=== PATIENT | male | born 1975 | race Caucasian/White ===

== ENCOUNTER 2020-05-02 11:39 | Emergency (ER) | payer OTHER ==
--- NOTE | 2020-05-02 12:00 | ED Physician Documentation ---
PD HPI ABD PAIN - Stated complaint Stated Complaint: ADB/SIDE PX - LOWER RT - Chief complaint Chief Complaint: Abd Pain - History obtained from History obtained from: Patient - History of Present Illness Timing - onset: How many months ago (1-2 months of intermittent RLQ pain last days at a time, and then more consistent the past couple weeks, hurting to some extent all the time. Local to RLQ area. He is concerned about appendix.) Timing - duration: Weeks Timing - details: Gradual onset, Still present, Waxing and waning Quality: Cramping, Aching, Pain Location: RLQ Radiation: No: Right flank Improved by: No: Eating, BM Worsened by: Moving, Position. No: Eating, Breathing Associated symptoms: Constipation (having BMs but they are firm and small typically.), Loss of appetite. No: Fever, Nausea, Vomiting, Diarrhea, Weight loss Similar symptoms before: Has not had sx before Review of Systems Constitutional: denies: Fever Nose: denies: Rhinorrhea / runny nose, Congestion Throat: denies: Sore throat Respiratory: denies: Cough GI: reports: Abdominal Pain, Constipation (firm with smaller amounts). denies: Abdominal Swelling, Nausea, Vomiting, Diarrhea, Bloody / black stool : denies: Dysuria, Frequency, Hematuria Skin: denies: Rash, Lesions Musculoskeletal: denies: Neck pain, Back pain PD PAST MEDICAL HISTORY - Past Medical History Past Medical History: No Cardiovascular: None Respiratory: None Endocrine/Autoimmune: None GI: None - Past Surgical History Past Surgical History: No - Present Medications Home Medications: Ambulatory Orders Medication Instructions Recorded Confirmed Docusate Sodium 100 mg PO DAILY #30 capsule 05/02/20 Naproxen 500 mg PO BID #20 tablet 05/02/20 - Allergies Allergies/Adverse Reactions: Allergies Allergy/AdvReac Type Severity Reaction Status Date / Time No Known Drug Allergies Allergy Verified 05/02/20 11:55 PD ED PE NORMAL - Vitals Vital signs reviewed: Yes - General General: Alert and oriented X 3, No acute distress, Well developed/nourished - HEENT HEENT: Atraumatic, Pharynx benign - Neck Neck: Supple, no meningeal sign, No adenopathy - Cardiac Cardiac: RRR, No murmur - Respiratory Respiratory: Clear bilaterally - Abdomen Abdomen: Normal bowel sounds, Soft, Non distended, No organomegaly, Other (some tenderness RLQ to mid abdomen. No percussion nor rebound tenderness. No masses. No inguinal nor umbilical hernias. ) - Male Male : Deferred - Rectal Rectal: Deferred - Back Back: No CVA TTP - Derm Derm: Normal color, Warm and dry, No rash - Extremities Extremities: No tenderness to palpate, Normal ROM s pain, No edema, No calf tenderness / cord - Neuro Neuro: Alert and oriented X 3, No motor deficit, Normal speech Results - Vitals Vitals: Vital Signs - 24 hr 05/02/20 05/02/20 05/02/20 11:45 14:00 16:00 Temperature 36.7 C Heart Rate 88 76 70 Respiratory 16 18 16 Rate Blood Pressure 142/76 H 150/88 H 151/100 H O2 Saturation 99 100 96 Oxygen O2 Source Room air - Labs Labs: Laboratory Tests 05/02/20 05/02/20 05/02/20 13:14 13:14 14:56 WBC 5.6 RBC 5.71 Hgb 16.6 Hct 49.8 MCV 87.2 MCH 29.1 MCHC 33.3 RDW 13.7 Plt Count 303 MPV 8.3 Neut # (Auto) 4.2 Lymph # (Auto) 0.9 L [place] # (Auto) 0.4 Eos # (Auto) 0.1 Baso # (Auto) 0.0 Absolute Nucleated RBC 0.00 Nucleated RBC % 0.0 Sodium 137 Potassium 4.3 Chloride 101 Carbon Dioxide 28 Anion Gap 8.0 BUN 21 H Creatinine 1.2 Estimated GFR (MDRD) 66 L Glucose 112 H Calcium 9.3 Total Bilirubin 0.5 AST 31 ALT 34 Alkaline Phosphatase 50 Total Protein 7.4 Albumin 4.4 Globulin 3.0 Albumin/Globulin Ratio 1.5 Lipase 31 Urine Color YELLOW Urine Clarity CLEAR Urine pH 6.5 Ur Specific [place] 1.015 Urine Protein NEGATIVE Urine Glucose (UA) NEGATIVE Urine Ketones NEGATIVE Urine Occult Blood NEGATIVE Urine Nitrite NEGATIVE Urine Bilirubin NEGATIVE Urine Urobilinogen 0.2 (NORMAL) Ur Leukocyte Esterase NEGATIVE Ur Microscopic Review NOT INDICATED Urine Culture Comments NOT INDICATED - Rads (name of study) abd/pelvic CT Radiology: Prelim report reviewed (normal appendix, no ureteral stones, no acue process. ), See rad report PD MEDICAL DECISION MAKING - ED course Complexity details: reviewed results (no acute process seen on CT. copious stool. discussed with patient that potential still for IBS, or inflammatory colitis as would not be 100% on CT. ), re-evaluated patient, considered d ifferential (seems less likely for appendicitis, given prolonged timeframe, but still consider diverticulum, colitis, chronic appy, etc.), d/w patient Departure - Departure Disposition: 01 Home, Self Care Clinical Impression: Right lower quadrant abdominal pain Clinical Impression: (Ruled Out): Appendicitis Condition: Stable Record reviewed to determine appropriate education?: Yes Instructions: ED Abdominal Pain Unkn Cause Prescriptions: Docusate Sodium 100 mg PO DAILY #30 capsule Naproxen 500 mg PO BID #20 tablet Comments: Your CT scan and blood tests are normal without any acute signs of infection. Your appendix is normal in particular. There was a generous amount of stool noted on the CT report. Consider stool softener twice daily for the first several days and then daily for a couple of weeks. There potentially could be some inflammatory cause so you could also use naproxen anti-inflammatory twice daily for the next week or so with food. Recheck if not improved over the next several days and return sooner if worsening or other symptoms. Discharge Date/Time: 05/02/20 16:10
[2020-05-02] MEDS ORDERED: KETOROLAC 30 MG/ML VIAL IVP STA (13:00)
[2020-05-02 13:30] LABS: BASOPHILS % (AUTO) 0.5 %; EOSINOPHILS # (AUTO) 0.1 10^3/uL (0.0-0.7); EOSINOPHILS % (AUTO) 1.1 %; HGB - HEMOGLOBIN 16.6 g/dL (14.0-18.0); LYMPHOCYTES # (AUTO) 0.9 10^3/uL (1.5-3.5); LYMPHOCYTES % (AUTO) 16.2 %; MEAN CORPUSCULAR HEMOGLOBIN 29.1 pg (27.0-31.0); MEAN CORPUSCULAR HGB CONC 33.3 g/dL (32.0-36.0); MEAN CORPUSCULAR VOLUME 87.2 fL (80.0-94.0); MEAN PLATELET VOLUME 8.3 fL (7.4-11.4); MONOCYTES # (AUTO) 0.4 10^3/uL (0.0-1.0); MONOCYTES % (AUTO) 6.7 %; NEUTROPHILS # (AUTO) 4.2 10^3/uL (1.5-6.6); NEUTROPHILS % (AUTO) 74.8 %; PLT - PLATELET COUNT 303 10^3/uL (130-450); RED BLOOD COUNT 5.71 10^6/uL (4.70-6.10); RED CELL DISTRIBUTION WIDTH 13.7 % (12.0-15.0); WHITE BLOOD COUNT 5.6 x10^3/uL (4.8-10.8)
[2020-05-02 13:39] LABS: ALBUMIN 4.4 g/dL (3.2-5.5); ALBUMIN/GLOBULIN RATIO 1.5 (1.0-2.2); BILIRUBIN,TOTAL 0.5 mg/dL (0.2-1.0); CALCIUM 9.3 mg/dL (8.5-10.3); CREATININE 1.2 mg/dL (0.6-1.2); TOTAL PROTEIN 7.4 g/dL (6.7-8.2)
[2020-05-02] MEDS ORDERED: IOVERSOL 320 100 ML VIAL IVP ONE ×2 (13:41→17:50)
--- NOTE | 2020-05-02 14:33 | CT Report ---
PROCEDURE: Abdomen/Pelvis W INDICATIONS: RLQ Abdominal pain, appendicitis suspected CONTRAST: IV CONTRAST: Optiray 320 ml: 100 PO CONTRAST: *NO PO CONTRAST TECHNIQUE: After the administration of intravenous contrast, 5 mm thick sections acquired from the diaphragms to the symphysis. 5 mm thick coronal and sagittal reformats were acquired. For radiation dose reducti on, the following was used: automated exposure control, adjustment of mA and/or kV according to love ent size. COMPARISON: None. FINDINGS: Image quality: Excellent. ABDOMEN: Lung bases: Lung bases are clear. Heart size is normal. Solid organs: Liver and spleen are normal in size and enhancement. Gallbladder is normal. Biliary system is non dilated. Pancreas enhances normally. No adrenal nodules. Kidneys demonstrate normal size and enhancement, without hydronephrosis. Peritoneum and bowel: Normal air-filled and nondilated appendix without adjacent inflammatory change s. No acute finding of the small or large bowel. No pericolonic or mesenteric inflammatory changes. T here is a moderate volume of stool throughout the abdomen which could potentially explain pain Nodes and vessels: No retroperitoneal or mesenteric adenopathy by size criteria. Aorta and inferior vena cava are normal in size. Miscellaneous: No ventral hernias. PELVIS: Genitourinary: Bladder wall thickness is normal. Miscellaneous: No inguinal hernias or adenopathy. Bones: No suspicious bony lesions. No vertebral body compression fractures. IMPRESSION: No findings of appendicitis or other acute abnormality to explain abdominal pain. Moderate volume of formed stool throughout the colon which in the proper clinical setting could indic ate constipation and is a potential explanation for abdominal pain. Reviewed by: Dannie Schrader MD on 05/02/2020 2:32 PM PDT Approved by: Dannie Schrader MD on 05/02/2020 2:32 PM PDT Station ID: [id number]
[2020-05-02 15:19] LABS: BILIRUBIN,URINE NEGATIVE (NEGATIVE); GLUCOSE, URINE (UA) NEGATIVE (NEGATIVE); KETONES,URINE (UA) NEGATIVE (NEGATIVE); LEUKOCYTE ESTERASE, URINE NEGATIVE (NEGATIVE); NITRITE,URINE NEGATIVE (NEGATIVE); OCCULT BLOOD,URINE NEGATIVE (NEGATIVE); PH,URINE 6.5 PH (5.0-7.5); PROTEIN,URINE NEGATIVE (NEGATIVE); UROBILINOGEN,URINE 0.2 (NORMAL) E.U./dL (NORMAL)
[2020-05-02 15:20] LABS: CLARITY,URINE CLEAR (CLEAR)
[2020-05-02 16:11] VITALS: BP 151/100
== END 2020-05-02 16:10 | disposition home or self-care (01) ==
LOC: ED 11:39
DX: R10.31 Right lower quadrant pain (principal)
CPT/HCPCS: 36415; 74177; 80053; 81003; 83690; 85025; 96374; 99284; Q9967; 81001; 87086